=== PATIENT | male | born 1955 | race Caucasian/White ===

== ENCOUNTER 2022-04-10 11:54 | Outpatient (CLI) | payer BC, SELFPAY ==
[2022-04-10 08:58] LABS: Abs Immature Grans 0.02 10^3/uL (0.0-0.06); Absolute Basophil Count 0.02 10^3/uL (0.0-0.2); Absolute Eosinophil Count 0.13 10^3/uL (0.0-0.7); Absolute Lymphocyte Count 0.95 10^3/uL (1.2-3.4); Absolute Monocyte Count 0.45 10^3/uL (0.1-0.8); Absolute Neutrophil Count 3.58 10^3/uL (1.2-6.7); Basophils % 0.4; Eosinophils % 2.5; HCT 39.1 % (40.0-50.0); HGB 12.9 g/dL (13.5-17.5); Immature Grans % 0.4; Lymphocytes % 18.4; MCH 28.7 pg (27.0-33.0); MCV 87 fL (80-95); MPV 9.3 fL (8.0-11.0); Monocytes % 8.7; Neutrophils % 69.6; Platelet Count 194 10^3/uL (130-400); RDW 13.7 % (11.8-14.1); RDW-SD 44.1 fL; WBC 5.15 10^3/uL (4.4-10.8)
[2022-04-10 09:12] LABS: ALT 31 U/L (16-63); AST 18 U/L (15-37); Albumin 3.4 g/dL (3.4-5.0); Alkaline Phosphatase 112 U/L (46-116); Anion Gap 6.8 mmol/L (3-11); BUN 13 mg/dL (7-18); Bilirubin, Total 0.3 mg/dL (0.2-1.0); CO2 29.2 mmol/L (21.0-32.0); CREATININE 0.9 mg/dL (0.70-1.30); Calcium 9.2 mg/dL (8.5-10.1); Chloride 100 mmol/L (98-107); Estimated GFR 95.37 (mL/min/1.73m2); Glucose 118 mg/dL (74-106); Potassium 4.3 mmol/L (3.5-5.1); Sodium 136 mmol/L (136-145); Total Protein 7.2 g/dL (6.4-8.2)
[2022-04-11 17:47] LABS: PSA, Ultrasensitive <0.01 ng/mL (<= 4.5)
[2022-04-14 09:54] LABS: Testosterone, Total 12 ng/dL (240-950)
== END 2022-04-10 11:55 | disposition home or self-care (01) ==
LOC: LBO 11:56
PROVIDERS: Visit Provider Nurse Practitioner Family
DX: C61 Malignant neoplasm of prostate (principal)
CPT/HCPCS: 36415; 80053; 84153; 84403; 85025

== ENCOUNTER 2022-05-02 12:31 | Outpatient (CLI) | payer BC, SELFPAY ==
[2022-05-02 12:46] LABS: Abs Immature Grans 0.01 10^3/uL (0.0-0.06); Absolute Basophil Count 0.02 10^3/uL (0.0-0.2); Absolute Eosinophil Count 0.17 10^3/uL (0.0-0.7); Absolute Lymphocyte Count 0.96 10^3/uL (1.2-3.4); Absolute Monocyte Count 0.41 10^3/uL (0.1-0.8); Absolute Neutrophil Count 3.52 10^3/uL (1.2-6.7); Basophils % 0.4; Eosinophils % 3.3; HCT 38.7 % (40.0-50.0); HGB 12.6 g/dL (13.5-17.5); Immature Grans % 0.2; Lymphocytes % 18.9; MCH 28.2 pg (27.0-33.0); MCHC 32.6 % (32.0-36.0); MCV 87 fL (80-95); MPV 9.1 fL (8.0-11.0); Monocytes % 8.1; Neutrophils % 69.1; Platelet Count 209 10^3/uL (130-400); RBC 4.47 10^6/uL (4.36-5.78); RDW 13.9 % (11.8-14.1); RDW-SD 44.2 fL; WBC 5.09 10^3/uL (4.4-10.8)
[2022-05-02 13:13] LABS: ALT 28 U/L (16-63); AST 22 U/L (15-37); Albumin 3.7 g/dL (3.4-5.0); Alkaline Phosphatase 110 U/L (46-116); Bilirubin, Direct 0.1 mg/dL (0.0-0.2); Bilirubin, Total 0.3 mg/dL (0.2-1.0); C-Reactive Protein 0.83 mg/dL (0.0-0.3); Total Protein 7.3 g/dL (6.4-8.2)
== END 2022-05-02 12:32 | disposition home or self-care (01) ==
LOC: LBO 12:31
PROVIDERS: Visit Provider Internal Medicine Gastroenterology
DX: K50.919 Crohn's disease, unspecified, with unspecified complications (principal)
CPT/HCPCS: 36415; 80076; 85025; 86140

== ENCOUNTER 2022-05-17 04:55 | Outpatient (CLI) | payer BC, SELFPAY ==
[2022-05-17 09:42] LABS: Abs Immature Grans 0.01 10^3/uL (0.0-0.06); Absolute Basophil Count 0.04 10^3/uL (0.0-0.2); Absolute Eosinophil Count 0.18 10^3/uL (0.0-0.7); Absolute Lymphocyte Count 1.07 10^3/uL (1.2-3.4); Absolute Monocyte Count 0.47 10^3/uL (0.1-0.8); Absolute Neutrophil Count 3.88 10^3/uL (1.2-6.7); Basophils % 0.7; Eosinophils % 3.2; HCT 39.9 % (40.0-50.0); HGB 13.3 g/dL (13.5-17.5); Immature Grans % 0.2; Lymphocytes % 18.9; MCHC 33.3 % (32.0-36.0); MCV 84 fL (80-95); MPV 9.6 fL (8.0-11.0); Monocytes % 8.3; Neutrophils % 68.7; Platelet Count 218 10^3/uL (130-400); RBC 4.75 10^6/uL (4.36-5.78); RDW 14.1 % (11.8-14.1); RDW-SD 43.3 fL; WBC 5.65 10^3/uL (4.4-10.8)
[2022-05-17 10:11] LABS: ALT 27 U/L (16-63); AST 20 U/L (15-37); Albumin 3.5 g/dL (3.4-5.0); Alkaline Phosphatase 115 U/L (46-116); Bilirubin, Direct 0.1 mg/dL (0.0-0.2); Bilirubin, Total 0.3 mg/dL (0.2-1.0); C-Reactive Protein 1.56 mg/dL (0.0-0.3); Total Protein 7.4 g/dL (6.4-8.2)
== END 2022-05-17 04:56 | disposition home or self-care (01) ==
LOC: LBO 04:55
PROVIDERS: Visit Provider Internal Medicine Gastroenterology
DX: K50.919 Crohn's disease, unspecified, with unspecified complications (principal)
CPT/HCPCS: 36415; 80076; 85025; 86140

== ENCOUNTER 2022-05-30 03:19 | Outpatient (CLI) | payer BC, SELFPAY ==
[2022-05-30 07:26] LABS: Abs Immature Grans 0.02 10^3/uL (0.0-0.06); Absolute Basophil Count 0.03 10^3/uL (0.0-0.2); Absolute Eosinophil Count 0.17 10^3/uL (0.0-0.7); Absolute Lymphocyte Count 0.99 10^3/uL (1.2-3.4); Absolute Monocyte Count 0.42 10^3/uL (0.1-0.8); Absolute Neutrophil Count 3.26 10^3/uL (1.2-6.7); Basophils % 0.6; Eosinophils % 3.5; HCT 41.3 % (40.0-50.0); HGB 13.4 g/dL (13.5-17.5); Immature Grans % 0.4; Lymphocytes % 20.2; MCH 27.9 pg (27.0-33.0); MCHC 32.4 % (32.0-36.0); MCV 86 fL (80-95); MPV 9.1 fL (8.0-11.0); Monocytes % 8.6; Neutrophils % 66.7; Platelet Count 184 10^3/uL (130-400); RDW 14.4 % (11.8-14.1); RDW-SD 45.6 fL; WBC 4.89 10^3/uL (4.4-10.8)
[2022-05-30 08:01] LABS: ALT 27 U/L (16-63); AST 20 U/L (15-37); Albumin 3.6 g/dL (3.4-5.0); Alkaline Phosphatase 108 U/L (46-116); Bilirubin, Direct 0.1 mg/dL (0.0-0.2); Bilirubin, Total 0.3 mg/dL (0.2-1.0); C-Reactive Protein 0.96 mg/dL (0.0-0.3); Total Protein 7.3 g/dL (6.4-8.2)
[2022-06-05 13:10] LABS: Vedolizumab Ab <9.8 ng/mL (<9.8); Vedolizumab QN, S 8.7 mcg/mL
== END 2022-05-30 03:20 | disposition home or self-care (01) ==
LOC: LBO 03:19
PROVIDERS: Visit Provider Internal Medicine Gastroenterology
DX: K50.919 Crohn's disease, unspecified, with unspecified complications (principal); Z79.899 Other long term (current) drug therapy
CPT/HCPCS: 36415; 80076; 82397; 85025; 86140

== ENCOUNTER 2022-06-07 02:04 | Outpatient (CLI) | payer BC, SELFPAY ==
[2022-06-07 08:25] LABS: Abs Immature Grans 0.01 10^3/uL (0.0-0.06); Absolute Basophil Count 0.03 10^3/uL (0.0-0.2); Absolute Eosinophil Count 0.14 10^3/uL (0.0-0.7); Absolute Lymphocyte Count 0.89 10^3/uL (1.2-3.4); Absolute Neutrophil Count 3.43 10^3/uL (1.2-6.7); Basophils % 0.6; Eosinophils % 2.8; HGB 13.1 g/dL (13.5-17.5); Immature Grans % 0.2; Lymphocytes % 17.8; MCH 27.7 pg (27.0-33.0); MCHC 32.8 % (32.0-36.0); MCV 85 fL (80-95); MPV 9.1 fL (8.0-11.0); Neutrophils % 68.6; Platelet Count 210 10^3/uL (130-400); RBC 4.73 10^6/uL (4.36-5.78); RDW 14.5 % (11.8-14.1)
[2022-06-07 09:10] LABS: ALT 31 U/L (16-63); AST 21 U/L (15-37); Albumin 3.7 g/dL (3.4-5.0); Alkaline Phosphatase 107 U/L (46-116); Bilirubin, Direct 0.1 mg/dL (0.0-0.2); Bilirubin, Total 0.4 mg/dL (0.2-1.0); C-Reactive Protein 0.73 mg/dL (0.0-0.3); Total Protein 7.5 g/dL (6.4-8.2)
[2022-06-14 14:27] LABS: Vedolizumab Ab <9.8 ng/mL (<9.8); Vedolizumab QN, S 8.4 mcg/mL
== END 2022-06-07 02:05 | disposition home or self-care (01) ==
PROVIDERS: Visit Provider Internal Medicine Gastroenterology
DX: K50.919 Crohn's disease, unspecified, with unspecified complications (principal); Z79.899 Other long term (current) drug therapy
CPT/HCPCS: 36415; 80076; 82397; 85025; 86140

== ENCOUNTER 2022-06-27 13:09 | Outpatient (CLI) | payer BC, SELFPAY ==
[2022-06-27 12:52] LABS: Abs Immature Grans 0.02 10^3/uL (0.0-0.06); Absolute Basophil Count 0.04 10^3/uL (0.0-0.2); Absolute Eosinophil Count 0.19 10^3/uL (0.0-0.7); Absolute Monocyte Count 0.39 10^3/uL (0.1-0.8); Absolute Neutrophil Count 3.14 10^3/uL (1.2-6.7); Basophils % 0.8; Eosinophils % 3.9; HCT 38.7 % (40.0-50.0); HGB 12.7 g/dL (13.5-17.5); Immature Grans % 0.4; Lymphocytes % 22.5; MCH 27.8 pg (27.0-33.0); MCHC 32.8 % (32.0-36.0); MCV 85 fL (80-95); MPV 9.1 fL (8.0-11.0); Neutrophils % 64.4; Platelet Count 222 10^3/uL (130-400); RBC 4.57 10^6/uL (4.36-5.78); RDW 14.6 % (11.8-14.1); RDW-SD 45.1 fL; WBC 4.88 10^3/uL (4.4-10.8)
[2022-06-27 13:43] LABS: ALT 30 U/L (16-63); AST 22 U/L (15-37); Albumin 3.5 g/dL (3.4-5.0); Alkaline Phosphatase 109 U/L (46-116); Bilirubin, Direct 0.1 mg/dL (0.0-0.2); Bilirubin, Total 0.3 mg/dL (0.2-1.0); C-Reactive Protein 0.93 mg/dL (0.0-0.3)
== END 2022-06-27 13:10 | disposition home or self-care (01) ==
LOC: LBO 13:10
PROVIDERS: Visit Provider Internal Medicine Gastroenterology
DX: K50.919 Crohn's disease, unspecified, with unspecified complications (principal)
CPT/HCPCS: 36415; 80076; 85025; 86140

== ENCOUNTER 2022-07-10 02:58 | Outpatient (CLI) | payer BC, SELFPAY ==
[2022-07-10 12:04] LABS: Abs Immature Grans 0.02 10^3/uL (0.0-0.06); Absolute Basophil Count 0.04 10^3/uL (0.0-0.2); Absolute Eosinophil Count 0.21 10^3/uL (0.0-0.7); Absolute Monocyte Count 0.43 10^3/uL (0.1-0.8); Absolute Neutrophil Count 3.24 10^3/uL (1.2-6.7); Basophils % 0.8; Eosinophils % 4.3; HCT 40.9 % (40.0-50.0); HGB 13.4 g/dL (13.5-17.5); Immature Grans % 0.4; Lymphocytes % 20.2; MCH 27.4 pg (27.0-33.0); MCHC 32.8 % (32.0-36.0); MCV 84 fL (80-95); MPV 9.4 fL (8.0-11.0); Monocytes % 8.7; Neutrophils % 65.6; Platelet Count 230 10^3/uL (130-400); RBC 4.89 10^6/uL (4.36-5.78); RDW 14.6 % (11.8-14.1); RDW-SD 44.8 fL; WBC 4.94 10^3/uL (4.4-10.8)
[2022-07-10 12:28] LABS: ALT 36 U/L (16-63); AST 22 U/L (15-37); Albumin 3.7 g/dL (3.4-5.0); Alkaline Phosphatase 111 U/L (46-116); Bilirubin, Direct 0.1 mg/dL (0.0-0.2); Bilirubin, Total 0.3 mg/dL (0.2-1.0); C-Reactive Protein 0.67 mg/dL (0.0-0.3); Total Protein 7.3 g/dL (6.4-8.2)
[2022-07-10 12:29] LABS: ALT 33 U/L (16-63); AST 18 U/L (15-37); Albumin 3.7 g/dL (3.4-5.0); Alkaline Phosphatase 109 U/L (46-116); Anion Gap 6.6 mmol/L (3-11); BUN 20 mg/dL (7-18); Bilirubin, Total 0.3 mg/dL (0.2-1.0); CO2 30.4 mmol/L (21.0-32.0); Calcium 9.4 mg/dL (8.5-10.1); Chloride 103 mmol/L (98-107); Estimated GFR 84.05 (mL/min/1.73m2); Glucose 120 mg/dL (74-106); Potassium 3.8 mmol/L (3.5-5.1); Sodium 140 mmol/L (136-145); Total Protein 7.3 g/dL (6.4-8.2)
[2022-07-11 20:22] LABS: PSA, Ultrasensitive <0.01 ng/mL (<= 4.5)
[2022-07-17 17:52] LABS: Testosterone, Total 15 ng/dL (240-950)
== END 2022-07-10 02:59 | disposition home or self-care (01) ==
PROVIDERS: Internal Medicine Gastroenterology; Visit Provider Nurse Practitioner Family
DX: C61 Malignant neoplasm of prostate (principal); K50.919 Crohn's disease, unspecified, with unspecified complications
CPT/HCPCS: 36415; 80053; 80076; 84153; 84403; 85025; 86140

== ENCOUNTER 2022-07-27 01:44 | Outpatient (CLI) | payer BC, SELFPAY ==
[2022-07-27 07:21] LABS: Abs Immature Grans 0.03 10^3/uL (0.0-0.06); Absolute Basophil Count 0.02 10^3/uL (0.0-0.2); Absolute Eosinophil Count 0.19 10^3/uL (0.0-0.7); Absolute Lymphocyte Count 1.03 10^3/uL (1.2-3.4); Absolute Monocyte Count 0.45 10^3/uL (0.1-0.8); Basophils % 0.4; Eosinophils % 4.2; HCT 41.3 % (40.0-50.0); HGB 13.6 g/dL (13.5-17.5); Immature Grans % 0.7; Lymphocytes % 22.8; MCH 28.2 pg (27.0-33.0); MCHC 32.9 % (32.0-36.0); MCV 86 fL (80-95); MPV 9.2 fL (8.0-11.0); Neutrophils % 61.9; Platelet Count 175 10^3/uL (130-400); RBC 4.82 10^6/uL (4.36-5.78); RDW 14.6 % (11.8-14.1); RDW-SD 45.7 fL; WBC 4.52 10^3/uL (4.4-10.8)
[2022-07-27 08:13] LABS: ALT 31 U/L (16-63); AST 17 U/L (15-37); Albumin 3.6 g/dL (3.4-5.0); Alkaline Phosphatase 116 U/L (46-116); Bilirubin, Direct 0.1 mg/dL (0.0-0.2); Bilirubin, Total 0.4 mg/dL (0.2-1.0); C-Reactive Protein 0.99 mg/dL (0.0-0.3); Total Protein 7.2 g/dL (6.4-8.2)
[2022-07-27 10:41] LABS: Anion Gap 8.9 mmol/L (3-11); BUN 23 mg/dL (7-18); CO2 27.1 mmol/L (21.0-32.0); Calcium 9.4 mg/dL (8.5-10.1); Chloride 100 mmol/L (98-107); Estimated GFR 84.05 (mL/min/1.73m2); Glucose 176 mg/dL (74-106); Sodium 136 mmol/L (136-145)
[2022-08-01 23:44] LABS: PSA, Ultrasensitive <0.01 ng/mL (<= 4.5)
[2022-08-02 16:51] LABS: Testosterone, Total 11 ng/dL (240-950)
== END 2022-07-27 01:45 | disposition home or self-care (01) ==
PROVIDERS: Visit Provider Internal Medicine Gastroenterology
DX: K50.919 Crohn's disease, unspecified, with unspecified complications (principal); C61 Malignant neoplasm of prostate
CPT/HCPCS: 36415; 80053; 80076; 84153; 84403; 85025; 86140

== ENCOUNTER 2022-09-01 08:42 | Outpatient (CLI) | payer BC, SELFPAY ==
[2022-09-01 08:59] LABS: Abs Immature Grans 0.01 10^3/uL (0.0-0.06); Absolute Basophil Count 0.02 10^3/uL (0.0-0.2); Absolute Eosinophil Count 0.08 10^3/uL (0.0-0.7); Absolute Lymphocyte Count 0.62 10^3/uL (1.2-3.4); Absolute Neutrophil Count 2.02 10^3/uL (1.2-6.7); Basophils % 0.6; Eosinophils % 2.5; HCT 39.7 % (40.0-50.0); HGB 13.2 g/dL (13.5-17.5); Immature Grans % 0.3; Lymphocytes % 19.7; MCH 28.6 pg (27.0-33.0); MCHC 33.2 % (32.0-36.0); MCV 86 fL (80-95); MPV 9.2 fL (8.0-11.0); Monocytes % 12.7; Neutrophils % 64.2; Platelet Count 161 10^3/uL (130-400); RBC 4.61 10^6/uL (4.36-5.78); RDW 14.6 % (11.8-14.1); WBC 3.15 10^3/uL (4.4-10.8)
[2022-09-01 10:00] LABS: ALT 39 U/L (16-63); AST 20 U/L (15-37); Albumin 3.5 g/dL (3.4-5.0); Alkaline Phosphatase 112 U/L (46-116); Bilirubin, Direct 0.1 mg/dL (0.0-0.2); Bilirubin, Total 0.3 mg/dL (0.2-1.0); C-Reactive Protein 1.36 mg/dL (0.0-0.3); Total Protein 7.1 g/dL (6.4-8.2)
== END 2022-09-01 08:43 | disposition home or self-care (01) ==
LOC: LBO 08:42
PROVIDERS: Visit Provider Internal Medicine Gastroenterology
DX: K50.919 Crohn's disease, unspecified, with unspecified complications (principal)
CPT/HCPCS: 36415; 80076; 85025; 86140

== ENCOUNTER 2022-12-07 20:21 | Outpatient (CLI) | payer MEDICARE, BC, SELFPAY ==
[2022-12-07 07:44] LABS: Abs Immature Grans 0.01 10^3/uL (0.0-0.06); Absolute Basophil Count 0.02 10^3/uL (0.0-0.2); Absolute Eosinophil Count 0.07 10^3/uL (0.0-0.7); Absolute Lymphocyte Count 0.43 10^3/uL (1.2-3.4); Absolute Monocyte Count 0.29 10^3/uL (0.1-0.8); Absolute Neutrophil Count 2.77 10^3/uL (1.2-6.7); Basophils % 0.6; Eosinophils % 1.9; HCT 40.6 % (40.0-50.0); HGB 13.7 g/dL (13.5-17.5); Immature Grans % 0.3; MCH 28.8 pg (27.0-33.0); MCHC 33.7 % (32.0-36.0); MCV 86 fL (80-95); MPV 8.8 fL (8.0-11.0); Monocytes % 8.1; Neutrophils % 77.1; Platelet Count 125 10^3/uL (130-400); RBC 4.75 10^6/uL (4.36-5.78); RDW 14.6 % (11.8-14.1); RDW-SD 45.1 fL; WBC 3.59 10^3/uL (4.4-10.8)
[2022-12-07 08:18] LABS: ALT 29 U/L (16-63); AST 17 U/L (15-37); Albumin 3.6 g/dL (3.4-5.0); Alkaline Phosphatase 86 U/L (46-116); Bilirubin, Direct 0.1 mg/dL (0.0-0.2); Bilirubin, Total 0.4 mg/dL (0.2-1.0); C-Reactive Protein 0.38 mg/dL (0.0-0.3); Total Protein 6.7 g/dL (6.4-8.2)
[2022-12-08 11:11] LABS: HBs Antibody, Quant <3.1 mIU/mL (See Note); Hepatitis B Surface Ab Negative (See Note)
[2022-12-08 11:15] LABS: Hepatitis B Surface Ag Negative (Negative)
[2022-12-14 14:54] LABS: PSA, Ultrasensitive <0.01 ng/mL (<= 4.5)
== END 2022-12-07 20:22 | disposition home or self-care (01) ==
LOC: LBO 20:25
PROVIDERS: Nurse Practitioner Family; Visit Provider Internal Medicine Gastroenterology
DX: C61 Malignant neoplasm of prostate (principal); K50.919 Crohn's disease, unspecified, with unspecified complications
CPT/HCPCS: 36415; 80076; 84153; 86706; 87340; 85025; 86140

== ENCOUNTER 2022-12-14 09:57 | Outpatient (CLI) | payer MEDICARE, SELFPAY ==
[2022-12-14 10:18] LABS: Abs Immature Grans 0.02 10^3/uL (0.0-0.06); Absolute Basophil Count 0.04 10^3/uL (0.0-0.2); Absolute Eosinophil Count 0.19 10^3/uL (0.0-0.7); Absolute Lymphocyte Count 1.06 10^3/uL (1.2-3.4); Absolute Monocyte Count 0.42 10^3/uL (0.1-0.8); Absolute Neutrophil Count 3.68 10^3/uL (1.2-6.7); Basophils % 0.7; Eosinophils % 3.5; HCT 39.9 % (40.0-50.0); HGB 13.2 g/dL (13.5-17.5); Immature Grans % 0.4; Lymphocytes % 19.6; MCH 28.8 pg (27.0-33.0); MCHC 33.1 % (32.0-36.0); MCV 87 fL (80-95); MPV 9.3 fL (8.0-11.0); Monocytes % 7.8; Platelet Count 182 10^3/uL (130-400); RBC 4.58 10^6/uL (4.36-5.78); RDW 14.6 % (11.8-14.1); RDW-SD 46.7 fL; WBC 5.41 10^3/uL (4.4-10.8)
[2022-12-14 12:07] LABS: ALT 28 U/L (16-63); AST 16 U/L (15-37); Albumin 3.6 g/dL (3.4-5.0); Alkaline Phosphatase 88 U/L (46-116); Anion Gap 7.1 mmol/L (3-11); BUN 17 mg/dL (7-18); Bilirubin, Direct 0.1 mg/dL (0.0-0.2); Bilirubin, Total 0.4 mg/dL (0.2-1.0); C-Reactive Protein 0.57 mg/dL (0.0-0.3); CO2 28.9 mmol/L (21.0-32.0); CREATININE 0.9 mg/dL (0.70-1.30); Calcium 8.8 mg/dL (8.5-10.1); Chloride 104 mmol/L (98-107); Estimated GFR 94.78 (mL/min/1.73m2); Glucose 110 mg/dL (74-106); Potassium 3.8 mmol/L (3.5-5.1); Sodium 140 mmol/L (136-145); Total Protein 6.7 g/dL (6.4-8.2)
[2022-12-19 17:38] LABS: Testosterone, Total 56 ng/dL (240-950)
== END 2022-12-14 09:58 | disposition home or self-care (01) ==
LOC: LBO 10:00
PROVIDERS: Visit Provider Nurse Practitioner Family
DX: C61 Malignant neoplasm of prostate (principal); K50.919 Crohn's disease, unspecified, with unspecified complications
CPT/HCPCS: 36415; 80053; 80076; 84403; 85025; 86140

== ENCOUNTER 2023-06-22 08:22 | Outpatient (CLI) | payer MEDICARE, SELFPAY ==
[2023-06-25 16:53] LABS: PSA, Ultrasensitive <0.01 ng/mL (<= 4.5)
[2023-06-28 09:12] LABS: Testosterone, Total 105 ng/dL (240-950)
== END 2023-06-22 08:23 | disposition home or self-care (01) ==
LOC: LBO 08:22
PROVIDERS: Visit Provider Nurse Practitioner
DX: C61 Malignant neoplasm of prostate (principal)
CPT/HCPCS: 36415; 84153; 84403